=== PATIENT | female | born 1955 | race Caucasian/White ===

== ENCOUNTER 2020-10-14 09:20 | Day surgery (SDC) | payer MEDICARE, OTHER ==
[~2020-10-14] VITALS: Ht 160 cm; Wt 83.4 kg
[~2020-10-14 09:20] MED LIST: ALPR.5; ARIP10 PO; ARIP15 PO; ATOR40TA PO; CEPH500 PO; CLIM.025TP TOP; CLON.5 PO; CLON1; CLON1 PO; CYCL10 PO; FLUO20 PO; FURO20 PO; HYDACE5 PO; Hair, Skin & N1 EACH; LORA.5 PO; LOSA25 PO; METF500 PO; OMEPRAZOLE MAGN20 MG PO; PROM25 PO; PROZAC; TOPI100 PO; TRAZ100; TRAZ100 PO; ZIPR40
[2020-10-14] MEDS ORDERED: Actos15 MG PO (09:37)
--- NOTE | 2020-10-14 09:52 | NUR ---
INTO SDS ADMISSION STARTED VSS IV STARTED
--- NOTE | 2020-10-14 09:53 | NUR ---
Ambulatory in Day Surgery. History, Chart, Medications and Allergies reviewed before start of procedure. Patient confirms NPO status and agrees with scheduled surgery.
--- NOTE | 2020-10-14 10:15 | NUR ---
10/14/20 1015 [facility] History, Chart, Medications and Allergies reviewed before start of procedure.Patient confirms NPO status and agrees with scheduled surgery.3-LEAD EKG REVIEWED WITH PHYSICIAN PRIOR TO START OF PROCEDURE.MONITOR INTACT WITH CONTINUOUS PULSE OXIMETRY AND INTERMITTENT BP.O2 VIA N/C INTACT THROUGHOUT SEDATION/PROCEDURE. PATIENT DETERMINED TO BE ASA APPROPRIATE FOR PROPOFOL SEDATION PRIOR TO START OF PROCEDURE BY DR. LOGAN
--- NOTE | 2020-10-14 10:50 | NUR ---
REDCIEVED PATIENT FROM ENDO ROOM 1 RECIEVED REPORT.
--- NOTE | 2020-10-14 11:00 | NUR ---
Discharge instructions reviewed with patient. Patient verbalizes understanding. Copy given to patient to take home. Patient States Post-Procedure ride home has been arranged. Discharged via wheelchair to private car for ride home.
== END 2020-10-14 23:23 | disposition home or self-care (01) ==
LOC: ORSCMMR 09:20
DX: Z12.11 Encounter for screening for malignant neoplasm of colon (principal); Z86.010 Personal history of colon polyps; D12.3 Benign neoplasm of transverse colon; D12.4 Benign neoplasm of descending colon; K63.5 Polyp of colon; D12.5 Benign neoplasm of sigmoid colon; K75.81 Nonalcoholic steatohepatitis (NASH); F32.9 Major depressive disorder, single episode, unspecified; E11.9 Type 2 diabetes mellitus without complications; E66.01 Morbid (severe) obesity due to excess calories; Z68.34 Body mass index [BMI] 34.0-34.9, adult; K21.9 Gastro-esophageal reflux disease without esophagitis; I10 Essential (primary) hypertension; E78.00 Pure hypercholesterolemia, unspecified; Z79.899 Other long term (current) drug therapy
CPT/HCPCS: 82947; 88305; J2704; J7120

== ENCOUNTER → 2021-06-13 | Outpatient (CLI) | payer MEDICARE, OTHER ==
[~2021-06-13] MED LIST changes: +Actos15 MG PO
== END | disposition home or self-care (01) ==
LOC: LAB 17:56 → LAB SHORT 17:56
DX: B34.9 Viral infection, unspecified (principal)
CPT/HCPCS: 87081; 87147

== ENCOUNTER → 2021-10-19 | Outpatient (CLI) | payer MEDICARE, OTHER ==
[2021-10-20 00:03] LABS: Adenovirus Not Detected (NOT DETECT); Coronavirus 229E Detected (NOT DETECT); Coronavirus HKU1 Not Detected (NOT DETECT); Coronavirus NL63 Not Detected (NOT DETECT); Coronavirus OC43 Not Detected (NOT DETECT); Human Metapneumovirus Not Detected (NOT DETECT); Human Rhinovirus/Enterovirus Not Detected (NOT DETECT); Influenza A/2009-H1 Not Detected (NOT DETECT); Influenza A/H1 Not Detected (NOT DETECT); Influenza A/H3 Not Detected (NOT DETECT); SARS-Cov-2 (COVID-19), BioFire Detected (NOT DETECT)
[2021-10-20 00:04] LABS: Bordetella pertussis Not Detected (NOT DETECT); Chlamydophila pneumoniae Not Detected (NOT DETECT); Influenza B Not Detected (NOT DETECT); Mycoplasma pneumoniae Not Detected (NOT DETECT); Parainfluenza Virus 1 Not Detected (NOT DETECT); Parainfluenza Virus 2 Not Detected (NOT DETECT); Parainfluenza Virus 3 Not Detected (NOT DETECT); Parainfluenza Virus 4 Not Detected (NOT DETECT); Respiratory Syncytial Virus Not Detected (NOT DETECT)
== END | disposition home or self-care (01) ==
LOC: LAB SHORT 15:00 → LAB 15:00
PROVIDERS: Nurse Practitioner Family
DX: J06.9 Acute upper respiratory infection, unspecified (principal)
CPT/HCPCS: 0202U